=== PATIENT | male | born 1995 | race Caucasian/White ===

== ENCOUNTER 2017-03-05 19:22 | Emergency (ER) | payer SELFPAY ==
[2017-03-05 19:24] VITALS: BP 134/60; PULSE 95; RESP 18; TEMP 98.4; O2SAT 97
--- NOTE | 2017-03-05 21:05 | PD ---
HPI Chief Complaint: Foreign Body Time Seen by Provider: 21:01 Travel History International Travel<30 days: No Contact w/Intl Traveler<30days: No Traveled to known affect area: No History of Present Illness HPI Patient comes emergency Department for evaluation of puncture wound to his right fifth toe that occurred shortly prior to arrival. Patient states he was walking up a hill when he lost his balance causing him to step on a catfish libby penetrated the distal the tip of his fifth toe on the right. Patient reports having burning/throbbing pain around site of puncture wound. Patient states he went home and soaked in warm water that helped some but continues to have the pain. Patient reports tetanus shot was not up-to-date. Pain radiates proximally. [facility] Past Medical History Medical History: Denies Significant Hx Social History Alcohol Use: No Tobacco Use: No Substance Use: No Allergies-Medications (Allergen,Severity, Reaction): Coded Allergies: No Known Allergies (Unverified , 03/05/17) Reported Meds & Prescriptions Reported Meds & Active Scripts Active Cipro (Ciprofloxacin HCl) 500 Mg Tab 500 Mg PO BID 5 Days Doxycycline Hyclate 100 Mg Cap 100 Mg PO BID 7 Days Review of Systems Except as stated in HPI: all other systems reviewed are Neg Physical Exam Narrative GENERAL: Well-developed, well nourished, in no acute distress, and non-ill appearing. SKIN: Small less than 0.5 cm puncture wound noted over the distal tip right fifth toe. Patient reports tenderness to palpation. There is no foreign body noted. There is no crepitus, erythematous, or induration. Full range of motion. Neurovascularly intact. HEAD: Atraumatic. Normocephalic. EYES: Pupils equal and round. EOMI. No scleral icterus. No injection or drainage. ENT: No nasal bleeding or discharge. Mucous membranes pink and moist. NECK: Trachea midline. Supple. No nuclear rigidity. RESPIRATORY: No accessory muscle use. No respiratory distress. MUSCULOSKELETAL: No obvious deformities. No clubbing. No cyanosis. No edema. Full range of motion. NEUROLOGICAL: Awake and alert. No obvious cranial nerve deficits. Motor grossly within normal limits. Normal speech. PSYCHIATRIC: Appropriate mood and affect; insight and judgment normal. Data Data Last Documented VS Vital Signs Date Time Temp Pulse Resp B/P (MAP) Pulse Ox O2 Delivery O2 Flow Rate FiO2 03/05/17 22:20 03/05/17 19:24 98.4 95 18 97 Room Air Orders Orders Foot, Limited (2vws) (03/05/17 ) Tetanus/Diphtheria Tox Adult (Tetanus/Di (03/05/17 21:15) Ibuprofen (Motrin) (03/05/17 21:15) Ed Discharge Order (03/05/17 21:49) MDM Medical Decision Making Medical Screen Exam Complete: Yes Emergency Medical Condition: Yes Differential Diagnosis Retained foreign body, puncture wound, cellulitis, other Narrative Course Patient in no obvious distress upon re-evaluation. All pertinent Radiology result(s) discussed with patient. Patient was asked if they wanted to speak to my attending, which the patient did not wish to do at this time. Any questions/ concerns in reference to patient diagnosis/condition discussed and clarified prior to patient's discharge. Reinforced sheer importance of close follow up with patient's primary physician or primary care clinic. Instructed patient to return to ED immediately, if symptoms return/worsen. Patient showed understanding of above instructions. Further instructions and recommendations were detailed in discharge paperwork. Patient ambulated without difficulty out of ED at discharge. Diagnosis Primary Impression: Puncture wound Patient Instructions: General Instructions, Puncture Wound (ED) Additional Instructions: Follow-up with your primary care physician and/or felt machine mechanic this week for reevaluation. Take all medication as prescribed. Use [id number] Tylenol and/or ibuprofen as needed for pain. Follow instructions on the packaging. Keep wound dry and clean as possible using soap and water. Use Neosporin to promote healing. Do not soak or submerge wound. Avoid heavy lifting or strenuous activity for 2 weeks. Return to the emergency department if symptoms get worse. Med/Other Pt SpecificInfo: Prescription(s) given Scripts Ciprofloxacin (Cipro) 500 Mg Tab 500 MG PO BID for Infection for 5 Days, #10 TAB 0 Refills Prov: Nitza Pace MD 03/05/17 Doxycycline Hyclate (Doxycycline Hyclate) 100 Mg Cap 100 MG PO BID for Infection for 7 Days, #14 CAP 0 Refills Prov: Nitza Pace MD 03/05/17 Disposition: 01 DISCHARGE HOME Condition: Stable Zak Nunn Mar 05, 2017 21:05
[2017-03-05] MEDS ORDERED: TETANUS/DIPHTHERIA TOXOID ADULT 0.5 ML VIAL IM ONE (21:15)
[2017-03-05] MEDS ORDERED: IBUPROFEN 800 MG TAB PO ONE (21:15)
--- NOTE | 2017-03-05 21:24 | RADRPT ---
EXAM DATE/TIME: 03/05/2017 20:00 [facility] COMPARISON: No previous studies available for comparison. INDICATIONS : Possible foreign body. Patient stepped on a catfish tonight. The libby went into the fifth digit of hi s right foot. MEDICAL HISTORY : None. SURGICAL HISTORY : None. ENCOUNTER: Initial ACUITY: 1 day PAIN SCORE: 10/10 LOCATION: Right foot. FINDINGS: Two view examination of the right foot demonstrates no dislocation, or fracture. There is soft tissu e swelling of the fifth digit. The calcaneus is intact. There is fusion at the fourth and fifth DIP joints. This is a normal variant. No foreign body is seen. Bony mineralization is normal. CONCLUSION: No foreign body is seen. Soft tissue swelling is seen. Phuc Jacobo MD on March 05, 2017 at 21:21 Board Certified Radiologist. This report was verified electronically.
[2017-03-05] MEDS ORDERED: CIPR-9 PO (21:47)
[2017-03-05] MEDS ORDERED: DOXY100C PO (21:47)
== END 2017-03-05 22:25 | disposition home or self-care (01) ==
LOC: NEPK 19:22
DX: S91.134A Puncture wound without foreign body of right lesser toe(s) without damage to nail, initial encounter (principal); W56.59XA Other contact with other fish, initial encounter; Y93.01 Activity, walking, marching and hiking; Z23 Encounter for immunization
CPT/HCPCS: 73620; 90471; 90714